=== PATIENT | male | born 1990 | race Caucasian/White ===

== ENCOUNTER 2016-12-23 09:10 | Emergency (ER) | payer MEDICAID ==
--- NOTE | ~2016-12-23 | CT16 ---
[facility] A Service of [facility] & [facility] RADIOLOGY TEXT RESULTS PATIENT: FARIHA SURESH LOCATION: SED : 91 UNIT #: [id number] AGE: [address]: Ce Montanez MD SEX: M ORDER DR: [id number] [place] [id number] E MR#: [id number] Acc #: [id number] NAME: FARIHA SURESH : 1990 SEX: M STUDY DATE/TIME: 12/23/2016 12:14 UNIT: SED ROOM: STUDY DESCRIPTION: CT Angio Chest for PE Attending Physician: Ce Montanez M.D. Ordering Physician: Ce Montanez M.D. Primary Care Physician: Primary Care Physician No MEDICAL IMAGING REPORT This report is preliminary unless electronic signature is present. EXAM CT angiogram of the chest for pulmonary embolism, 12/23/2016 12:14 hours HISTORY 26-year-old man complaining of acute onset of chest pain at 06:45 hours today with shortness of air. Patient smokes 2 packs per day. COMPARISON Chest x-ray, 12/23/[address] angiographic images were obtained from the thoracic inlet through the adrenal glands. 3-D sagittal and coronal reconstructions were performed. Contrast was Isovue-370, 100 mL IV. Total exam DLP 936 mGy-cm. This CT exam was performed with one or more of the following radiation dose reduction techniques: automatic exposure control, adjustment of mA and/or kV according to patient size, and iterative reconstruction. FINDINGS Images through the thoracic inlet demonstrate no thyroid mass or supraclavicular adenopathy. Images through the chest demonstrate poor timing of the contrast bolus and poor opacification of the pulmonary arteries which are normal in caliber. No central pulmonary embolism is seen however, exclusion of pulmonary embolism in the third order vessels or beyond is not possible. The aorta is normal in caliber. Cardiac chambers, pericardium and esophagus are normal. Lung window images are clear. There is no pleural effusion or pneumothorax. Bone window images demonstrate no rib or vertebral fracture. There are small Schmorl's nodes in the lower thoracic spine. STS. [facility] A Service of [facility] & [facility] RADIOLOGY TEXT RESULTS PATIENT: FARIHA SURESH LOCATION: SED : 91 UNIT #: [id number] AGE: [address]: Ce Montanez MD SEX: M ORDER DR: Limited views through the upper abdomen are negative. IMPRESSION 1. Timing of the contrast bolus is suboptimal. There are no central pulmonary emboli seen however assessment of the third order vessels and beyond is not possible. 2. Normal caliber aorta. 3. Cardiac chambers, pericardium and lungs are normal. 4. No fracture seen. STAT * RESULT Dictated by... Rubia Garza M.D. THIS IS AN ELECTRONICALLY VERIFIED REPORT Rubia Garza M.D. at 12/23/2016 1:39 PM [place] TD: 12/23/2016 12:41 JOB #: [id number] MEDICAL IMAGING REPORT Page 1 of 1
--- NOTE | ~2016-12-23 | EKG ---
PATIENT: FARIHA SURESH UNIT #: [id number] Ventricular Rate: 88 BPM Atrial Rate: 88 BPM P-R Interval: 138 ms QRS Duration: 80 ms Q-T Interval: 346 ms QTC Calculation(Bezet): 418 ms P Saxon: 43 degrees Calculated R Saxon: -6 degrees Calculated T Saxon: 10 degrees Diagnosis Line: Normal sinus rhythm Diagnosis Line: Moderate voltage criteria for LVH, may be normal Diagnosis Line: variant Diagnosis Line: Borderline ECG Diagnosis Line: No previous ECGs available Diagnosis Line: Confirmed by ISRAEL MORTON MD ([id number]) on Diagnosis Line: 12/25/2016 10:42:03 AM INTERPRETING MD: SELENE KIM
--- NOTE | ~2016-12-23 | CR72 ---
[facility]. [facility] A Service of [facility] & [facility] RADIOLOGY TEXT RESULTS PATIENT: FARIHA SURESH LOCATION: SED : 91 UNIT #: [id number] AGE: [address]: Ce Montanez MD SEX: M ORDER DR: [id number] [place] [id number] E MR#: [id number] Acc #: [id number] NAME: FARIHA SURESH. : 1990 SEX: M STUDY DATE/TIME: 12/23/2016 9:54 UNIT: SED ROOM: STUDY DESCRIPTION: CR Chest Single View Portable Attending Physician: Ce Montanez M.D. Ordering Physician: Ce Montanez M.D. Primary Care Physician: Primary Care Physician No MEDICAL IMAGING REPORT This report is preliminary unless electronic signature is present. EXAM Portable chest x-ray 12/23/2016 HISTORY Chest pain, short of air. Smoker 2 packs per day. Symptoms began 06:45 a.m. today. <__IM_1: Cut off at end __> Dictated by... Chao Gatica M.D. NICHELLE/dami TD: 12/23/2016 18:54 JOB #: [id number] MEDICAL IMAGING REPORT Page 1 of 1
[~2016-12-23 09:10] MED LIST: CORTISPORI10 ML OTIC AD; NO MEDICATIONS; PREDNISONE PO; ZITHROMAX PO
[2016-12-23 10:14] LABS: URINE SOURCE CLEAN CATCH
[2016-12-23 10:26] LABS: URINE APPEARANCE CLEAR; URINE BILIRUBIN NEG (NEG); URINE BLOOD NEG (NEG); URINE COLOR YELLOW; URINE GLUCOSE NEG (NORM); URINE KETONE NEG (NEG); URINE LEUKOCYTE ESTERASE TRACE (NEG); URINE NITRATE NEG (NEG); URINE PH 5.5 (5-8); URINE PROTEIN NEG (NEG); URINE SPECIFIC GRAVITY 1.025 (1.003-1.035); URINE UROBILINOGEN 0.2 MG/DL (NORM)
[2016-12-23 10:27] LABS: MICRO INDICATED? YES
[2016-12-23 10:28] LABS: CULTURE INDICATED? YES; URINE BACTERIA 1+ (NEG); URINE MUCUS PRESENT; URINE RBC 0-2 /[HPF] (0-2); URINE SQUAMOUS EPITHELIAL CELL MODERATE /[HPF]
[2016-12-23 10:37] LABS: AMPHETAMINE NEG (NEG); BARBITURATES NEG (NEG); BENZODIAZEPINES NEG (NEG); COCAINE NEG (NEG); MARIJUANA NEG (NEG); OPIATES NEG (NEG); TRICYCLIC ANTIDEPRESSANTS NEG (NEG); U METHADONE NEG (NEG)
[2016-12-23 10:38] LABS: BASOPHIL# 0.1 X10e3 (0-0.3); BASOPHIL% 0.6 % (0-2.5); EOSINOPHIL# 0.2 X10e3 (0-0.7); EOSINOPHIL% 2.1 % (0.0-7.0); HEMATOCRIT 44.4 % (38.0-50.0); HEMOGLOBIN 15.5 gm/dL (13.0-16.0); LYMPHOCYTE# 2.3 X10e3 (1.0-3.5); LYMPHOCYTE% 27.1 % (17.0-45.0); MEAN CELL VOLUME 91.1 FL (83-96); MEAN CORPUSCULAR HEMOGLOBIN 31.8 PG (28-34); MEAN CORPUSCULAR HGB CONC 34.9 g/dL (30-36); MEAN PLATELET VOLUME 7.5 FL (6.5-11.5); MONOCYTE# 0.7 X10e3 (0-1.0); MONOCYTE% 8.6 % (3.0-12.0); NEUTROPHIL# 5.2 X10e3 (1.5-7.1); NEUTROPHIL% 61.6 % (40-75); PLATELET COUNT 326 X10e3 (140-420); RED BLOOD COUNT 4.87 X10e (3.90-5.60); RED CELL DISTRIBUTION WIDTH 12.8 % (11.0-15.5); WHITE BLOOD COUNT 8.5 X10e3 (4.0-10.5)
[2016-12-23 10:39] LABS: DIFF IND NO
[2016-12-23 10:50] LABS: POC - CKMB <1.0 ng/mL (0.0-7.9)
[2016-12-23 10:51] LABS: POC - MYOGLOBIN 59.1 ng/mL (0.0-169.0); POC - TROPONIN <0.05 ng/mL (<=0.05)
[2016-12-23 10:52] LABS: PROTHROMBIN TIME (PATIENT) 11.4 SECONDS (9.5-12.4)
[2016-12-23 10:59] LABS: PARTIAL THROMBOPLASTIN TIME 27.3 SECONDS (25.6-38.1)
[2016-12-23 11:01] LABS: ALBUMIN SERUM 4.2 g/dL (3.5-5.0); BILIRUBIN, DIRECT 0.1 mg/dL (0.0-0.2); BILIRUBIN,INDIRECT 0.3 mg/dL (0.0-0.9); BILIRUBIN,TOTAL 0.4 mg/dL (0.2-2.0); BUN/CREATININE RATIO 11.11; CALCIUM SERUM 8.5 mg/dL (8.4-10.2); CREATININE SERUM 0.9 mg/dL (0.6-1.4); GLOM FILT RATE Estimated 118.3 mL/min (>60); PROTEIN TOTAL SERUM 7.2 g/dL (6.0-8.3)
[2016-12-23 12:56] LABS: POC - CKMB <1.0 ng/mL (0.0-7.9); POC - TROPONIN <0.05 ng/mL (<=0.05)
== END 2016-12-23 13:21 | disposition home or self-care (01) ==
LOC: SED 09:10
PROVIDERS: Student in an Organized Health Care Education/Training Program
DX: F41.9 Anxiety disorder, unspecified (principal); R07.89 Other chest pain; I10 Essential (primary) hypertension; Z88.0 Allergy status to penicillin; F17.200 Nicotine dependence, unspecified, uncomplicated
CPT/HCPCS: 36415; 71010; 71275; 80048; 80076; 80307; 81003; 82553; 83874; 83880; 84484; 85025; 85610; 85730; 87086; 93005; 99285; Q9967